=== PATIENT | female | born 1940 | race Caucasian/White ===

== ENCOUNTER 2016-07-19 19:41 | Emergency (ER) | payer OTHER ==
[~2016-07-19] VITALS: Ht 165.1 cm; Wt 64.5 kg
[2016-07-19 19:44] VITALS: BP 200/88; PULSE 78; RESP 15; TEMP 97.9; O2SAT 99
[2016-07-19] MEDS ORDERED: LEVO.1 PO (21:53)
[2016-07-19] MEDS ORDERED: ROSU10 PO (21:53)
[2016-07-19] MEDS ORDERED: LISI10TA3 PO (21:53)
[2016-07-19] MEDS ORDERED: SODIUM CHLOR 0.9% 1000 ML INJ 1,000 ML IV SCH (22:08)
--- NOTE | 2016-07-19 22:14 | PD ---
HPI Chief Complaint: Abdominal Pain Time Seen by Provider: 22:02 Travel History International Travel<30 days: No Contact w/Intl Traveler<30days: No Traveled to known affect area: No History of Present Illness HPI Patient is a 76-year-old female who presents to emergency room with complaints of right lower quadrant abdominal pain. Patient reports on May 31, she had similar pains and was seen at [facility], reports that she had a CAT scan of her abdomen and pelvis which showed appendicitis as well as acute diverticulitis. Patient reports that at that time, the general surgeon talked to her and decided to have medical management for her symptoms and was sent home with a course of Cipro and Flagyl for 7 days.. Patient reports that she completed a full course of antibiotics, reports that 3 days ago, she did have increased pain to her right lower quadrant. Patient reports that she has been feeling nauseous, reports that she can't eat or drink because of this pain. Patient reports that she went to an urgent care center today and was told to come to the emergency room for evaluation of possible acute appendicitis. Patient reports no fevers or chills at this time. She did have 2 normal bowel movements yesterday. PFSH Past Medical History High Cholesterol: Yes Diverticulitis: Yes Hypertension: Yes Immunizations Current: Yes Thyroid Disease: Yes Tetanus Vaccination: Unknown Influenza Vaccination: No Past Surgical History Hysterectomy: Yes Social History Alcohol Use: No Tobacco Use: No Substance Use: No Allergies-Medications (Allergen,Severity, Reaction): Coded Allergies: No Known Allergies (Unverified , 07/19/16) Reported Meds & Prescriptions Reported Meds & Active Scripts Active Zofran Odt (Ondansetron Odt) 4 Mg Tab 4 Mg SL Q6HR PRN Reported Lisinopril 10 Mg Tab 10 Mg PO DAILY Synthroid (Levothyroxine Sodium) 100 Mcg Tab 100 Mcg PO DAILY Crestor (Rosuvastatin Calcium) 10 Mg Tab 10 Mg PO HS PRN Review of Systems General / Constitutional: No: Fever Eyes: No: Visual changes HENT: No: Headaches Cardiovascular: No: Chest Pain or Discomfort Respiratory: No: Shortness of Breath Gastrointestinal: Positive: Nausea, Abdominal Pain Genitourinary: No: Dysuria Musculoskeletal: No: Pain Skin: No Rash Neurologic: No: Weakness Psychiatric: No: Depression Endocrine: No: Polydipsia Hematologic/Lymphatic: No: Easy Bruising Physical Exam Narrative GENERAL: Mild distress SKIN: Warm and dry. HEAD: Atraumatic. Normocephalic. EYES: Pupils equal and round. No scleral icterus. No injection or drainage. ENT: No nasal bleeding or discharge. Mucous membranes pink and moist. NECK: Trachea midline. No JVD. CARDIOVASCULAR: Regular rate and rhythm. No murmur appreciated. RESPIRATORY: No accessory muscle use. Clear to auscultation. Breath sounds equal bilaterally. GASTROINTESTINAL: Abdomen soft, patient with right lower quadrant abdominal pain with guarding on exam MUSCULOSKELETAL: No obvious deformities. No clubbing. No cyanosis. No edema. NEUROLOGICAL: Awake and alert. No obvious cranial nerve deficits. Motor grossly within normal limits. Normal speech. PSYCHIATRIC: Appropriate mood and affect; insight and judgment normal. Data Data Last Documented VS Vital Signs Date Time Temp Pulse Resp B/P Pulse Ox O2 Delivery O2 Flow Rate FiO2 07/19/16 22:21 16 07/19/16 19:44 97.9 78 200/88 99 Room Air Orders Complete Blood Count With Diff (07/19/16 22:08) Comprehensive Metabolic Panel (07/19/16 22:08) Lipase (07/19/16 22:08) Lactic Acid (07/19/16 22:08) Prothrombin Time / Inr (Pt) (07/19/16 22:08) Act Partial Throm Time (Ptt) (07/19/16 22:08) Urinalysis - C+S If Indicated (07/19/16 22:08) Ct Abd/Pel W Iv Contrast(Rout) (07/19/16 22:08) Iv Access Insert/Monitor (07/19/16 22:08) Ecg Monitoring (07/19/16 22:08) Oximetry (07/19/16 22:08) NPO (07/19/16 22:08) Morphine Inj (Morphine Inj) (07/19/16 22:15) Sodium Chlor 0.9% 1000 Ml Inj (Ns 1000 M (07/19/16 22:08) Sodium Chloride 0.9% Flush (Ns Flush) (07/19/16 22:15) Ondansetron Inj (Zofran Inj) (07/19/16 22:15) Iohexol 350 Inj (Omnipaque 350 Inj) (07/19/16 23:46) Labs Laboratory Tests Test 07/19/16 22:20 White Blood Count 10.7 TH/MM3 Red Blood Count 4.21 MIL/MM3 Hemoglobin 12.0 GM/DL Hematocrit 35.7 % Mean Corpuscular Volume 84.9 FL Mean Corpuscular Hemoglobin 28.5 PG Mean Corpuscular Hemoglobin 33.6 % Concent Red Cell Distribution Width 14.3 % Platelet Count 278 TH/MM3 Mean Platelet Volume 9.0 FL Neutrophils (%) (Auto) 71.2 % Lymphocytes (%) (Auto) 21.7 % Monocytes (%) (Auto) 6.1 % Eosinophils (%) (Auto) 0.6 % Basophils (%) (Auto) 0.4 % Neutrophils # (Auto) 7.6 TH/MM3 Lymphocytes # (Auto) 2.3 TH/MM3 Monocytes # (Auto) 0.7 TH/MM3 Eosinophils # (Auto) 0.1 TH/MM3 Basophils # (Auto) 0.0 TH/MM3 CBC Comment DIFF FINAL Differential Comment Prothrombin Time 10.6 SEC Prothromb Time International 1.0 RATIO Ratio Activated Partial 22.7 SEC Thromboplast Time Urine Color LIGHT-YELLOW Urine Turbidity CLEAR Urine pH 6.0 Urine Specific [place] 1.010 Urine Protein NEG mg/dL Urine Glucose (UA) NEG mg/dL Urine Ketones NEG mg/dL Urine Occult Blood NEG Urine Nitrite NEG Urine Bilirubin NEG Urine Urobilinogen LESS THAN 2.0 MG/DL Urine Leukocyte Esterase TRACE Urine RBC LESS THAN 1 /hpf Urine WBC 2 /hpf Urine Squamous Epithelial 1 /hpf Cells Urine Mucus FEW /lpf Microscopic Urinalysis Comment CULT NOT INDICATED Sodium Level 141 MEQ/L Potassium Level 3.5 MEQ/L Chloride Level 103 MEQ/L Carbon Dioxide Level 30.8 MEQ/L Anion Gap 7 MEQ/L Blood Urea Nitrogen 13 MG/DL Creatinine 0.77 MG/DL Estimat Glomerular Filtration 73 ML/MIN Rate Random Glucose 97 MG/DL Lactic Acid Level 0.8 mmol/L Calcium Level 9.9 MG/DL Total Bilirubin 0.4 MG/DL Aspartate Amino Transf 18 U/L (AST/SGOT) Alanine Aminotransferase 22 U/L (ALT/SGPT) Alkaline Phosphatase 89 U/L Total Protein 8.4 GM/DL Albumin 4.3 GM/DL Lipase 126 U/L [facility] Medical Decision Making Medical Screen Exam Complete: Yes Emergency Medical Condition: Yes Interpretation(s) Vital Signs Date Time Temp Pulse Resp B/P Pulse Ox O2 Delivery O2 Flow Rate FiO2 07/19/16 21:53 16 07/19/16 19:44 97.9 78 15 200/88 99 Room Air Differential Diagnosis Acute appendicitis, diverticulitis, electrolyte abnormality, UTI Narrative Course Patient is a 76-year-old female who presents to emergency room for evaluation of acute appendicitis. Reports that she was diagnosed with acute appendicitis and May 31 and had medical treatment for this with antibiotics which she completed a full course of antibiotics. Patient reports that for the past 3 days, she has had increased pain to her right lower quadrant, reports that she is unable to eat or drink for past 3 days because of this pain. Plan to obtain lab work as well as CT scan abdomen pelvis to evaluate for possible appendicitis vs diverticulitis. IV fluids as well as antiemetics and pain medications ordered. CBC & BMP Diagram 07/19/16 22:20 CT abdomen and pelvis with diverticulosis without any diverticulitis. The appendix appears normal with no evidence of appendicitis. There are tiny left renal cysts as well as mild arthrosclerosis. There are no acute findings on her CAT scan. Labs reevaluated, patient with no elevated white blood cell count , lactic acid was negative, CMP: WNL and UA trace leuk esterase, negative nitrites, 2 white blood cells, 1 squamous epithelial cells, patient does not have a symptomatic UTI. Discussed need to follow-up with her primary care doctor. Signs and symptoms of acute abdomen was reviewed with patient in detail. Patient will follow-up in 8-12 hours for reevaluation. Understands need to follow-up with GI as outpatient for further workup. Diagnosis Primary Impression: Abdominal pain Qualified Code: R10.31 - Right lower quadrant abdominal pain Referrals: Deb Serna MD Patient Instructions: General Instructions Additional Instructions: Please provide patient with a copy of her lab work and studies at discharge Please follow-up with your primary care doctor Return to emergency room as needed Return to the emergency room immediately if you develop fevers or chills or return abdominal pain Please follow up with review trainer and return to ER as needed Med/Other Pt SpecificInfo: Prescription(s) given Scripts Ondansetron Odt (Zofran Odt)4 Mg Tab4 Mg SL Q6HR PRN (Nausea/Vomiting) #30 TAB Ref 0 Prov:Shu Wright DO 07/20/16 Disposition: 01 DISCHARGE HOME Condition: Stable Shu Wright DO Jul 19, 2016 22:14 Shu Wright DO Jul 19, 2016 22:14
[2016-07-19] MEDS ORDERED: MORPHINE SULFATE 4 MG/ML INJ IV PUSH ONE (22:15)
[2016-07-19] MEDS ORDERED: SODIUM CHLORIDE 0.9% FLUSH 10 ML FLUSH IV FLUSH PRN (22:15)
[2016-07-19] MEDS ORDERED: ONDANSETRON HCL 4 MG/2 ML VIAL IM ONE (22:15)
[2016-07-19 22:21] VITALS: RESP 16
[2016-07-19 22:44] LABS: AUTOMATED NEUTROPHIL # 7.6 TH/MM3 (1.8-7.7); BASOPHIL % 0.4 % (0.0-2.0); BLOOD, URINE NEG (NEG); COMMENT (UR) CULT NOT INDICATED; CULTURE IF INDICATED CULT NOT INDICATED; EOSINOPHIL # 0.1 TH/MM3 (0-0.4); EOSINOPHIL % 0.6 % (0.0-4.0); GLUCOSE,URINE NEG (NEG); HEMATOCRIT 35.7 % (35.0-46.0); HEMO FLAGS DIFF FINAL; KETONE, URINE NEG (NEG); LYMPH % 21.7 % (9.0-44.0); LYMPHOCYTE # 2.3 TH/MM3 (1.0-4.8); MEAN CELL VOLUME 84.9 FL (80.0-100.0); MEAN CORPUSCULAR HEMOGLOBIN 28.5 PG (27.0-34.0); MEAN CORPUSCULAR HGB CONC 33.6 % (32.0-36.0); MONO % 6.1 % (0.0-8.0); MUCUS URINE FEW /lpf (OCC); NEUT % 71.2 % (16.0-70.0); NITRITE,URINE NEG (NEG); PLATELET COUNT 278 TH/MM3 (150-450); RED BLOOD COUNT 4.21 MIL/MM3 (4.00-5.30); RED CELL DISTRIBUTION WIDTH 14.3 % (11.6-17.2); SQUAMOUS EPITHELIAL CELL URINE 1 /hpf (0-5); URINE COLOR LIGHT-YELLOW (YELLW/STRAW); WHITE BLOOD COUNT 10.7 TH/MM3 (4.0-11.0)
[2016-07-19 22:46] LABS: ALT (GPT) 22 U/L (10-53); ANION GAP 7 MEQ/L (5-15); AST (GOT) 18 U/L (15-37); BICARBONATE 30.8 MEQ/L (21.0-32.0); BLOOD UREA NITROGEN 13 MG/DL (7-18); CHLORIDE 103 MEQ/L (98-107); GLOMERULAR FILTRATION RATE 73 ML/MIN (>89); POTASSIUM 3.5 MEQ/L (3.5-5.1); SODIUM (NA) 141 MEQ/L (136-145)
[2016-07-19 22:48] LABS: ALKALINE PHOSPHATASE 89 U/L (45-117); APTT (PATIENT) 22.7 SEC (24.3-30.1); PROTHROMBIN TIME - PATIENT 10.6 SEC (9.8-11.6); TOTAL BILIRUBIN ADULT 0.4 MG/DL (0.2-1.0)
--- NOTE | 2016-07-19 23:42 | RADRPT ---
EXAM DATE/TIME: 07/19/2016 23:01 [facility] COMPARISON: No previous studies available for comparison. INDICATIONS : Right lower quadrant pain. IV CONTRAST: 100 cc Omnipaque 350 (iohexol) IV ORAL CONTRAST: No oral contrast ingested. RADIATION DOSE: 6.50 CTDIvol (mGy) MEDICAL HISTORY : Diverticulitis. SURGICAL HISTORY : Hysterectomy. ENCOUNTER: Initial ACUITY: 1 day PAIN SCALE: 3/10 LOCATION: Right lower quadrant TECHNIQUE: Volumetric scanning of the abdomen and pelvis was performed. Using automated exposure control and ad justment of the mA and/or kV according to patient size, radiation dose was kept as low as reasonably achievable to obtain optimal diagnostic quality images. FINDINGS: Small hiatal hernia. Liver, gallbladder, spleen, pancreas, bilateral adrenal glands are unremarkable. There is a small cyst of the midpole of the left kidney. There is mild cortical thinning of the left mid to upper pole kidney. Mild atherosclerotic plaquing of the aorta and iliac vessels. Urinary blad janette is unremarkable. The patient is status post hysterectomy. There is diverticulosis of the sigmoid colon identified. There are scattered transverse and descending colonic diverticuli. The appendix is normal. There is no evidence for diverticulitis. No adenopathy. Lung bases are clear. Degenerative ch anges of the spine are noted and a remote fracture deformity of the right iliac bone and inferior pub ic ramus with right hip arthroplasty. CONCLUSION: 1. Diverticulosis without diverticulitis. 2. Tiny left renal cyst. 3. Mild atherosclerosis. Yazan Solano MD on July 19, 2016 at 23:38 Board Certified Radiologist. This report was verified electronically.
[2016-07-19] MEDS ORDERED: IOHEXOL 350 MG/ML 10 ML VIAL (for RAD DIAG) IV ONE (23:46)
[2016-07-20] MEDS ORDERED: ZOFR4TAB3 SL
== END 2016-07-20 01:13 | disposition home or self-care (01) ==
LOC: NEPA 19:41
DX: R10.31 Right lower quadrant pain (principal); I10 Essential (primary) hypertension
CPT/HCPCS: 74177; 80053; 81001; 83605; 83690; 85025; 85610; 85730; 96360; 96372; 99284; J2405; J7030; Q9967